=== PATIENT | female | born 1990 | race Caucasian/White ===

== ENCOUNTER 2025-06-03 20:23 | Emergency (ER) | payer BC ==
[2025-06-03] MEDS: Amoxicillin/Clavulanate K 875-125 MG Tab PO ONE (21:51)
== END 2025-06-03 22:55 | disposition home or self-care (01) ==
LOC: JP.ED 20:23
DX: S61.051A Open bite of right thumb without damage to nail, initial encounter (principal); Z79.899 Other long term (current) drug therapy; Z90.49 Acquired absence of other specified parts of digestive tract; W54.0XXA Bitten by dog, initial encounter
CPT/HCPCS: 12001; 73140; 99283; A9270